=== PATIENT | male | born 1955 | race Hispanic/Latino ===

== ENCOUNTER 2018-01-13 12:20 | Emergency (ER) | payer OTHER ==
[2018-01-13 12:28] VITALS: BP 105/75; PULSE 96; RESP 18; TEMP 98.3; O2SAT 98
--- NOTE | 2018-01-13 12:43 | ED PDOC ---
HPI: Eye Injury/Pain Time Seen by Provider: 01/13/18 12:34 Chief Complaint (Nursing): Eye Problem Chief Complaint (Provider): Eye Problem History Per: Patient History/Exam Limitations: no limitations Onset/Duration Of Symptoms: Hrs (this morning) Current Symptoms Are (Timing): Still Present Additional Complaint(s): 62 year old male presents to the ED for evaluation of redness to his right eye. Patient states that after waking up this morning, his pointed out his eye was red, but he denies any trauma, injury, visual changes, pain, or itching. PMD: Yobani Trujillo Past Medical History Reviewed: Historical Data, Nursing Documentation, Vital Signs Vital Signs: Last Vital Signs Temp 98.3 F 01/13/18 12:27 Pulse 96 H 01/13/18 12:27 Resp 18 01/13/18 12:27 BP 105/75 01/13/18 12:27 Pulse Ox 98 01/13/18 12:27 - Medical History PMH: No Chronic Diseases - Surgical History Surgical History: No Surg Hx - Family History Family History: States: Unknown Family Hx - Allergies Allergies/Adverse Reactions: Allergies Allergy/AdvReac Type Severity Reaction Status Date / Time onion Allergy DIARRHEA Verified 01/13/18 12:25 Review of Systems ROS Statement: Except As Marked, All Systems Reviewed And Found Negative Constitutional: Negative for: Other (trauma / injury) Eyes: Positive for: Redness (right eye). Negative for: Pain, Vision Change, Other (itchiness) Physical Exam - Reviewed Nursing Documentation Reviewed: Yes Vital Signs Reviewed: Yes - Physical Exam Appears: Positive for: No Acute Distress Head Exam: Positive for: ATRAUMATIC, NORMOCEPHALIC Skin: Positive for: Normal Color, Warm, Dry Eye Exam: Positive for: Other (subconjunctival hemorrhage to right eye from 6 o' clock to 9 o'clock) Neurologic/Psych: Positive for: Alert, Oriented (x3). Negative for: Motor/ Sensory Deficits - ECG O2 Sat by Pulse Oximetry: 98 (RA) Pulse Ox Interpretation: Normal Medical Decision Making Medical Decision Making: Time: 12:40 Initial Impression: Subconjunctival hemorrhage Plan: --Patient does not require any treatment in the ED at this time. All questions were answered at this time about the diagnosis and patient is stable for discharge. Scribe Attestation: Documented by Lynne Darnell, acting as a scribe for Rianna Jorge PA-C. Provider Scribe Attestation: All medical record entries made by the Scribe were at my direction and personally dictated by me. I have reviewed the chart and agree that the record accurately reflects my personal performance of the history, physical exam, medical decision making, and the department course for this patient. I have also personally directed, reviewed, and agree with the discharge instructions and disposition. Disposition - Clinical Impression Clinical Impression: Subconjunctival hemorrhage - Patient ED Disposition Is Patient to be Admitted: No - Disposition Disposition: Routine/Home Disposition Time: 13:05 Condition: STABLE Instructions: Subconjunctival Hemorrhage Forms: [email or web address] (Slovenian) - POUyen Present On Arrival: None
== END 2018-01-13 13:07 | disposition home or self-care (01) ==
LOC: H.ER 12:20
DX: H11.30 Conjunctival hemorrhage, unspecified eye (principal)

== ENCOUNTER 2018-07-28 18:03 | Emergency (ER) | payer OTHER ==
[2018-07-28 18:21] VITALS: RESP 20; TEMP 97.6
[2018-07-28 19:12] LABS: BASO # 0.1 K/uL (0.0-0.2); BASO % 0.9 % (0.0-2.0); EOS # 0.2 K/uL (0.0-0.7); EOS % 2.3 % (0.0-4.0); HEMOGLOBIN 15.4 g/dL (12.0-18.0); LYMPH # 1.9 K/uL (1.0-4.3); LYMPH % 24.8 % (20.0-40.0); MEAN CELL VOLUME 92.4 fl (80.0-94.0); MEAN CORPUSCULAR HEMOGLOBIN 30.9 pg (27.0-31.0); MEAN CORPUSCULAR HGB CONC 33.5 g/dL (33.0-37.0); MEAN PLATELET VOLUME 7.8 fl (7.2-11.7); MONO # 0.5 K/uL (0.0-0.8); MONO % 6.7 % (0.0-10.0); NEUT % 65.3 % (50.0-75.0); NRBC % 0.1 % (0.0-0.0); RBC 4.97 Mil/uL (4.40-5.90); WHITE BLOOD COUNT 7.7 K/uL (4.8-10.8)
[2018-07-28 19:23] LABS: ALB/GLOB RATIO 1.3 (1.0-2.1); ALBUMIN 4.2 g/dL (3.5-5.0); ALT/SGPT 56 U/L (21-72); AST/SGOT 54 U/L (17-59); BLOOD UREA NITROGEN 15 mg/dl (9-20); CALCIUM 9.3 mg/dL (8.4-10.2); GFR NON-AFRICAN AMERICAN > 60
[2018-07-28] MEDS ORDERED: Alum-Mag Hydrox-Simethicone Susp (30 mL) PO ONE (19:35)
[2018-07-28] MEDS ORDERED: Alum-Mag Hydrox-Simethicone Susp (30 mL) ONE (19:46)
--- NOTE | 2018-07-28 20:29 | ED PDOC ---
HPI: Chest Pain Time Seen by Provider: 07/28/18 19:30 Chief Complaint (Nursing): Chest Pain Chief Complaint (Provider): Chest pain History Per: Patient History/Exam Limitations: no limitations Onset/Duration Of Symptoms: Hrs (x3) Current Symptoms Are (Timing): Still Present Additional Complaint(s): 62 year old male, with no significant past medical history, presents with sudden onset chest pain at 18:00 associated with nausea and vomiting. Patient was visiting his in this hospital when symptoms started and patient came down here immediately. Patient states symptoms including nausea resolved around 19:15. Patient states she had a similar episode of pain 15 years ago and was diagnosed with stomach acid. Denies syncope, trouble breathing, or radiation of pain. PMD: Yobani Figueroa Past Medical History Reviewed: Historical Data, Nursing Documentation, Vital Signs Vital Signs: Last Vital Signs Temp 97.6 F 07/28/18 18:19 Pulse 79 07/28/18 18:19 Resp 20 07/28/18 18: BP 146/91 H 07/28/18 18: Pulse Ox 100 07/28/18 18:19 - Medical History PMH: No Chronic Diseases - Surgical History Surgical History: No Surg Hx - Family History Family History: States: Unknown Family Hx - Allergies Allergies/Adverse Reactions: Allergies Allergy/AdvReac Type Severity Reaction Status Date / Time onion Allergy DIARRHEA Verified 01/13/18 12:25 Review of Systems ROS Statement: Except As Marked, All Systems Reviewed And Found Negative Cardiovascular: Positive for: Chest Pain Respiratory: Negative for: Shortness of Breath Gastrointestinal: Positive for: Nausea, Vomiting Neurological: Negative for: Other (syncope) Physical Exam - Reviewed Nursing Documentation Reviewed: Yes Vital Signs Reviewed: Yes - Physical Exam Appears: Positive for: Non-toxic, No Acute Distress Head Exam: Positive for: ATRAUMATIC, NORMOCEPHALIC Skin: Positive for: Normal Color, Warm, Dry Eye Exam: Positive for: Normal appearance Neck: Positive for: Normal, Painless ROM Cardiovascular/Chest: Positive for: Regular Rate, Rhythm Respiratory: Positive for: Normal Breath Sounds. Negative for: Wheezing, Respiratory Distress Gastrointestinal/Abdominal: Positive for: Normal Exam, Soft. Negative for: Tenderness Extremity: Positive for: Normal ROM Neurologic/Psych: Positive for: Alert, Oriented. Negative for: Motor/Sensory Deficits - Laboratory Results Result Diagrams: 07/28/18:00 07/28/18 19:00 Lab Results: Troponin I < 0.0120 ng/mL (0.00-0.120) 07/28/18 19:00 Total Bilirubin 0.5 mg/dl (0.2-1.3) 07/28/18 19:00 AST 54 U/L (17-59) 07/28/18 19:00 ALT 56 U/L (21-72) 07/28/18: Alkaline Phosphatase 94 U/L (38-126) 07/28/18 19:00 Total Protein 7.6 G/DL (6.3-8.2) 07/28/18: Albumin 4.2 g/dL (3.5-5.0) 07/28/18: Globulin 3.4 gm/dL (2.2-3.9) 07/28/18: Albumin/Globulin Ratio 1.3 (1.0-2.1) 07/28/18:00 - ECG O2 Sat by Pulse Oximetry: 100 (RA) Pulse Ox Interpretation: Normal Medical Decision Making Medical Decision Making: Initial Impression: Chest pain Initial Plan: Cardiac enzymes and basic labs ordered by previous ER doctor. Will get EKG, GI cocktail, and will reassess patient. 21:56 Patient remains symptom free. Labs normal with undetectable Troponin. Discussed with patient. Patient will have repeat Troponin drawn at 22:30, 4 hours after initial. Patient will be discharge if normal. 22:54 Patient remains asymptomatic. 2 sets of Troponin are negative. Patient to be discharge and will follow up with PMD. Return parameters discussed. Scribe Attestation: Documented by Mauri Santos acting as a scribe for Nancy Blancas MD. Provider Scribe Attestation: All medical record entries made by the Scribe were at my direction and personally dictated by me. I have reviewed the chart and agree that the record accurately reflects my personal performance of the history, physical exam, medical decision making, and the department course for this patient. I have also personally directed, reviewed, and agree with the discharge instructions and disposition. Disposition - Clinical Impression Clinical Impression: Chest pain, Atypical chest pain - Disposition Disposition: Routine/Home Disposition Time: 23:25 Condition: IMPROVED Additional Instructions: Follow up with primary medical doctor. Return to the emergency department if symptoms worsen or if new symptoms develop. Instructions: Chest Pain That Is Not Caused by the Heart (DC), Chest Pain (DC) Forms: [facility] (Faroese) Print Language: MACEDONIAN
[2018-07-28 23:25] VITALS: BP 123/78; PULSE 74; O2SAT 100
--- NOTE | 2018-07-29 10:00 | RAD ---
Date of service: 07/28/2018 HISTORY: possible admission COMPARISON: No prior. FINDINGS: LUNGS: Linear atelectasis left base versus fibrosis. No definitive infiltrate bilaterally nevertheless. PLEURA: No significant pleural effusion identified, no pneumothorax apparent. CARDIOVASCULAR: No aortic atherosclerotic calcification present. Normal cardiac size. No pulmonary vascular congestion. OSSEOUS STRUCTURES: No significant abnormalities. VISUALIZED UPPER ABDOMEN: Normal. OTHER FINDINGS: None. IMPRESSION: Linear atelectasis left base versus fibrosis. No definite acute infiltrate pleural effusion or pulmonary vascular congestion.
--- NOTE | 2018-08-01 12:35 | CARD ---
APPROVED REPORT Date of service: 07/28/2018 EKG Measurement Heart [id number] <Conclusion> Normal sinus rhythm Normal ECG
== END 2018-07-28 22:55 | disposition home or self-care (01) ==
LOC: H.ER 18:03
DX: R07.9 Chest pain, unspecified (principal)
CPT/HCPCS: 71045; 80053; 84484; 85025; 93005; 96374; 96375; 99284; J2405